=== PATIENT | male | born 1955 | race Hispanic/Latino ===

== ENCOUNTER 2017-03-08 09:09 | Inpatient (IN) | payer MEDICARE, OTHER ==
--- NOTE | 2017-03-08 11:53 | CP.PCM.HP ---
History of Present Illness - History of Present Illness History of Present Illness: Mr Casas is a 61 year old male with pmh sig for chronic back pain, colon lesion status post right hemicolectomy and left hip DJD that has gotten worse and more debilitating over the years despite therapy. Review of left hip xrays and ct scan are consitent with severe djd in the acetabulum. Pt is now admitted for left total hip replacement due to constant pain and debilitation Present on Admission - Present on Admission Any Indicators Present on Admission: No History of DVT/PE: No History of Uncontrolled Diabetes: No Urinary Catheter: No Decubitus Ulcer Present: No Review of Systems - Review of Systems All systems: reviewed and no additional remarkable complaints except (constant left hip pain) - Constitutional Constitutional: As Per HPI - Musculoskeletal Musculoskeletal: Limited Range of Motion, Muscle Weakness, Stiffness - Neurological Neurological: As Per HPI Past Patient History - Infectious Disease Hx of Infectious Diseases: None - Tetanus Immunizations Tetanus Immunization: Unknown - Past Social History Smoking Status: Current Some Days Smoker - CARDIAC Hx Cardiac Disorders: No Hx Angina: No Hx Hypertension: Yes Hx Pacemaker: No - PULMONARY Hx Respiratory Disorders: Yes (Pneumonia) Hx Pneumonia: Yes - NEUROLOGICAL Hx Neurological Disorder: No Hx Dizziness: Yes Hx Seizures: Yes (reports 1 seizure in 2014) Hx Syncope: Yes - RENAL Hx Chronic Kidney Disease: (2011-HD X 1 TX R/T MED TOXICITY) Other/Comment: bph - HEMATOLOGICAL/ONCOLOGICAL Hx Blood Transfusions: No Hx Blood Transfusion Reaction: No - MUSCULOSKELETAL/RHEUMATOLOGICAL Hx Musculoskeletal Disorders: Yes Hx Degenerative Joint Disease: Yes - GASTROINTESTINAL Hx Gastrointestinal Disorders: Yes (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 Seeing Dr. Vasquez in regards to it.) - PSYCHIATRIC Hx Emotional Abuse: No Hx Physical Abuse: No Hx Substance Use: Yes (OPIATE DEPENDENT FOR PAIN MANAGEMENT) - SURGICAL HISTORY Hx Surgeries: Yes - ANESTHESIA Hx Anesthesia Reactions: No Hx Malignant Hyperthermia: No Meds Allergies/Adverse Reactions: Allergies Allergy/AdvReac Type Severity Reaction Status Date / Time varenicline tartrate Allergy Severe ANAPHYLAXIS Verified 02/10/17 08:47 [From Chantix] zolpidem tartrate Allergy Severe HALLUCINATI Verified 02/10/17 09:20 [From Ambien] ONS Physical Exam - Constitutional Appears: Non-toxic, Younger Than Stated Age - Eye Exam Eye Exam: Normal appearance Pupil Exam: NORMAL ACCOMODATION - ENT Exam ENT Exam: Mucous Membranes Moist - Neck Exam Neck exam: Positive for: Normal Inspection - Respiratory Exam Respiratory Exam: Clear to Auscultation Bilateral, NORMAL BREATHING PATTERN - Cardiovascular Exam Cardiovascular Exam: REGULAR RHYTHM, +S1, +S2 - GI/Abdominal Exam GI & Abdominal Exam: Normal Bowel Sounds - Rectal Exam Rectal Exam: Deferred - Neurological Exam Neurological exam: Alert, Oriented x3 - Psychiatric Exam Psychiatric exam: Normal Affect, Normal Mood - Skin Skin Exam: Dry, Intact - Additional Findings Additional findings: complaint of left hip pain with active and passive ROM Results - Vital Signs Recent Vital Signs: Last Vital Signs Temp 97.9 F 03/08/17 09:33 Pulse 69 03/08/17 09:33 Resp 20 03/08/17 09:33 BP 142/80 03/08/17 09:33 Pulse Ox 95 03/08/17 09:33 - Labs Labs: Laboratory Results - last 24 hr 03/08/17 09:30 Blood Type A POSITIVE Antibody Screen Negative BBK History Checked Patient has bt - EKG Data EKG Interpreted by: Myself EKG shows normal: Sinus rhythm - EKG Data When Compared to Previous EKG: No Significant Change - Impressions Impression: echo showed EF 51% with normal LVF Assessment & Plan - Assessment and Plan (Free Text) Assessment: Mr Casas is a 61 yr old male with pmh sig for chronic back pain and djd of left hip with radiographic and clinical exam consistent with severe left hip DJD now admitted for total left hip replacement 1. severe left hip djd- for left hip total replacement will have progressive physical therapy post operatively and pain mgmt plan of r acute vs [facility] post operatively 2 smoker- smoking cessation encouraged 3 colon lesion- s/p right hemicolectomy 4. htn= will monitor and continue antihypertensive meds Pt seen and examined at bedside with Dr Monahan Will follow course Sydney Cabral
[2017-03-08] MEDS ORDERED: Bupivacaine 0.5% Inj(30mL) ONE (12:05)
[2017-03-08] MEDS ORDERED: Propofol 10 mg/ml Inj (20 ML) ONE (12:14)
[2017-03-08] MEDS ORDERED: Midazolam 2 MG/2 ML VIAL ONE (12:15)
[2017-03-08] MEDS ORDERED: Succinylcholine 200 mg/10 ml Inj IV ONE (12:16)
[2017-03-08] MEDS ORDERED: ePHEDrine 50 mg/ml Inj ONE (12:42)
[2017-03-08] MEDS ORDERED: Vancomycin 1 g Inj ONE (14:39)
[2017-03-08] MEDS ORDERED: Neostigmine Methylsulfate 3mg/3ml Syringe IV ONE (14:50)
[2017-03-08] MEDS ORDERED: HYDROmorphone 2 mg/ml ISec IVP PRN (14:55)
[2017-03-08] MEDS ORDERED: Lactated Ringer's 1,000 ML IV SCH (15:43)
[2017-03-08] MEDS ORDERED: HYDROmorphone 1 mg/ml ISec IVP PRN (15:43)
[2017-03-08] MEDS ORDERED: HYDROmorphone 0.2 mg/ml (25ml) 25 ML IV PRN (15:44)
[2017-03-08] MEDS ORDERED: HYDROmorphone 0.5 mg/0.5 ml ISec ONE ×2 (15:47→15:54)
--- NOTE | 2017-03-08 16:02 | OP ---
PROCEDURE DATE: 03/08/2017 PREOPERATIVE DIAGNOSIS: Left hip arthritis. POSTOPERATIVE DIAGNOSIS: Left hip arthritis. PROCEDURE: Left total hip arthroplasty. SURGEON: Ko Monahan MD COMPENSATION SUPERVISOR: ____ MAKSIM and first year podiatry resident. The REFERRAL AND INFORMATION AIDE was scrubbed and present throughout the entire case and assisted with retraction and hip dislocation and reduction, as well as wound archie sure. ANESTHESIA: General. COMPLICATIONS: None. ESTIMATED BLOOD LOSS: 150 mL. IMPLANT: Biomet total hip system. INDICATION FOR PROCEDURE: This is a 61-year-old gentleman with longstanding left hip pain. Clinical examination was consistent with some pain with passive and active range of motion of the hip, some l oss of passive internal and external rotation. Radiographic examination was consistent with left hip arthritis. After a period of failed nonsurgical management, recommendations were for a left total h ip arthroplasty. The risks, benefits, and alternatives of procedure were discussed with the patient and informed consent was obtained. OPERATIVE PROCEDURE: After surgical site was found and verified in preoperative holding area, the pa tient was taken to the operating room and placed supine on the operating room table. After administr ation of general anesthesia, the patient received 2 grams of Ancef IV. A Ford catheter was inserted . Venodyne boot was placed on the nonoperative extremity. The patient was positioned in lateral dec ubitus position with the left hip up towards the ceiling. Care was taken to make sure all bony promi nences and nerves were well padded and protected and the left lower extremity was prepped and draped in usual sterile fashion. Bony landmarks were identified about the left hip. An approximately 10 cm curvilinear incision was made over the left proximal femur. Soft tissues were dissected sharply shyanne n to the fascia and the fascia was incised and a Charnley retractor was placed. Short external rotat ors were tagged, resected off the proximal tibia. T-type capsulotomy was performed and the hip was d islocated. Based on our preoperative templates, our femoral neck resection was performed and the fem oral head was removed. In removing the femoral head, a small crack was noted right at the lateral as pect of our neck resection and a decision was made to address this later with a cerclage wire. At th is point, our attention was directed to the acetabulum and anterior capsulotomy was performed. Once the acetabulum was adequately exposed, the acetabulum was reamed sequentially to allow for a 54 mm pr ess-fit cup. Care was taken to make sure to maintain proper height and version. A trial cup was ins erted and then satisfied with the position, the trial was removed and the hip joint was pulse lavaged bony surfaces were dried and the actual cup was then impacted into place again making sure to mainta in proper height and version. The cup was then fixed with 2 additional screws in the posterior-super ior quadrant. The actual lining was then inserted and our attention was directed to the femur. The medullary canal of the proximal femur was reamed and broached sequentially to allow for a 15 mm press -fit collared stem. With the trial stem in place, the trial neck and head was inserted and the hip w as reduced and taken through a range of motion with approximately equal limb lengths and stable. The hip was dislocated and the trial components were removed. The hip joint was pulse lavaged and the a ctual stem was then impacted into place again making sure to maintain proper aversion. Prior to plac ing the head, a cerclage wire was passed around the calcar to ensure that there was no propagation of the fracture. At this point, the actual head was impacted into place and the hip was reduced. Hip was again taken a range of motion and was noted to be stable with approximately equal limb lengths. Capsule was closed to bone using #1 Vicryl suture. Short external rotators were repaired to bone usi ng #1 Vicryl suture. The deep fascia was closed using #1 Vicryl suture. The subcutaneous tissue was closed using 0 Vicryl and 2-0 Vicryl suture and the skin was closed using wale. A sterile dressi ng was applied and abduction pillow was placed. The patient was transferred supine, awakened and tom en to recovery room in stable condition. Ko Monahan MD cc: [id number] TT: 03/08/2017 16:01:44
[2017-03-08] MEDS ORDERED: HYDROmorphone 1 mg/ml ISec IVP ONE ×3 (16:10→17:00)
[2017-03-08] MEDS ORDERED: HYDROmorphone 1 mg/ml ISec ONE ×3 (16:13→17:06)
[2017-03-08 18:16] VITALS: BMI 28.0
[2017-03-08] MEDS: ceFAZolin 1 gm in NS 1 GM/100 ML BAG IVPB SCH (19:54)
[2017-03-09] MEDS: ceFAZolin 1 gm in NS 1 GM/100 ML BAG IVPB SCH (03:52)
[2017-03-09 07:06] LABS: ALKALINE PHOSPHATASE 120 U/L (38-133); ALT/SGPT 27 U/L (7-56); AST/SGOT 34 U/L (15-59); BILIRUBIN,TOTAL 0.8 mg/dL (0.2-1.3); BLOOD UREA NITROGEN 9 mg/dL (7-21); CALCIUM 8.7 mg/dL (8.4-10.5); CARBON DIOXIDE 27 mmol/L (21-33); CHLORIDE 99 mmol/L (98-107); GFR AFRICAN-AMERICAN > 60; GLUCOSE,RANDOM 119 mg/dL (70-110); POTASSIUM 3.5 mmol/L (3.6-5.0); SODIUM 135 mmol/L (132-148)
[2017-03-09 07:12] LABS: HEMATOCRIT 39.3 % (42.0-52.0); MEAN CORPUSCULAR HEMOGLOBIN 29.8 pg (25.0-35.0); MEAN CORPUSCULAR HGB CONC 34.6 g/dl (31.0-37.0); MEAN PLATELET VOLUME 10.3 fl (7.0-11.0); RED CELL DISTRIBUTION WIDTH 14.4 % (11.5-14.5); WHITE BLOOD COUNT 13.3 10^3/ul (4.5-11.0)
[2017-03-09] MEDS ORDERED: Potassium Chloride 20 mEq ER Tab PO SCH (08:00)
--- NOTE | 2017-03-09 08:49 | RAD ---
PROCEDURE: HISTORY: left total hip replacement COMPARISON: None TECHNIQUE: AP view of the pelvis and applicable frog leg views obtained. FINDINGS: A left hip prosthesis is present. The acetabular component appears seated satisfactorily with 2 oblique screws projecting into the acetabulum/iliac bone. The femoral stem appears well centered to the medullary cavity. Cerclage wire at the intertrochanteric level noted Soft tissue left thigh minimal emphysema - consistent postop changes Battery device -neurostimulator device -cephalad lead incompletely visualized. Extensive posterior-lateral hardware lumbar fusion with interbody metallic bone plugs suggested. Inferior lumbosacral laminectomy. Projecting over the right superior acetabulum -right iliac bone. Right hip osteoarthrosis with possible right femoral acetabular impingement morphology also noted IMPRESSION: Recent left hip replacement. Normal postop changes in satisfactory positioning suggested Extensive lumbar postop changes
--- NOTE | 2017-03-09 09:59 | CON ---
DATE: 03/09/2017 REFERRING PHYSICIAN: Dr. Monahan. REASON FOR CONSULTATION: Medical management of the patient's pain, left leg, secondary to arthritis. CHIEF COMPLAINT AND HISTORY OF PRESENT ILLNESS: This is a 61-year-old male who is a patient of mine from the office coming in for an elective left hip replacement that was done by Dr. Monahan. I have been asked to follow the patient medically for the chronic pain issues that the patient has. The pa dayton has been having difficulty ambulating and has been having significant pain issues requiring peri cotics. The patient had a left leg total hip arthroplasty done. He says his pain is not well contro lled with the Dilaudid. He is asking to increase his pain medications. He has no complaints of any nausea. No vomiting, no fever or chills, no abdominal pain or back pain, no dysuria or frequency. T he pain he does have in his back is not any worse from the chronic pain that he has. All other revie w of symptoms is within normal limits except as mentioned. Pain is 9/10, nonradiating, mostly on the left side, worse with movement. HOME MEDICATIONS: Xanax, Topamax, Norvasc. PAST MEDICAL HISTORY: 1. Chronic back pain. 2. Elevated PSA with biopsy negative for prostate cancer. 3. Thoracic spine compression. 4. Anxiety. 5. Depression. 6. Hypertension. 7. History of seizures. SOCIAL HISTORY: The patient does continue to smoke. Denies drug use. FAMILY HISTORY: Noncontributory. ALLERGIES: CHANTIX, AMBIEN. PHYSICAL EXAMINATION: VITAL SIGNS: Temperature is 99.6, pulse of 90, blood pressure 144/84, respirations 20, O2 saturation is 93%, height is 5 feet 9 inches, weight is 190 pounds, BMI is 28. GENERAL: Patient lying in bed, flat, and in no apparent distress. HEAD AND NECK EXAM: Atraumatic, normocephalic. Conjunctivae are pink. Throat clear and mouth with moist mucosa. Oropharynx benign. EYES: Extraocular movements are intact. PERRLA. NECK: Supple. No JVD, thyromegaly, or adenopathy. No bruits. HEART: S1 and S2 regular rate and rhythm. No murmurs, rubs, or gallops. LUNGS: Clear to auscultation bilaterally. No wheezing rales or rhonchi appreciated. No retraction s on exam. ABDOMEN: Soft, nontender, nondistended. Bowel sounds are positive in all quadrants. No rebound. No hepatosplenomegaly. EXTREMITIES: In the left leg, there is decreased range of motion because of the patient's pain. N o cyanosis, clubbing, or edema. NEURO: No facial asymmetry, tongue is midline, no uvula deviation. Power is 5/5 in upper extremity and 5/5 in lower extremity. Sensation is normal in upper extremity and lower extremity. PSYCH: Awake, alert, oriented x3. No anxiety or depression symptoms. Good insight. Normal affec t. : No CVA tenderness VASCULAR: 2+ pulses in carotid and pedal pulses. SKIN: No erythema or abnormal nodules noted. SPINE: Normal curvature. LYMPHADENOPATHY: No anterior cervical or posterior cervical adenopathy. No inguinal adenopathy. ASSESSMENT: 1. Left hip degenerative joint disease, status post left hip total replacement. 2. Smoking. 3. Anxiety. 4. Chronic back pain. 5. Benign prostatic hypertrophy. 6. Hypertension. PLAN: The patient is currently comfortable, but requires increasing of his pain medications. I jerardo l place the patient on Dilaudid 4 mg. The patient is on Colace for constipation. He is on Norvasc f or hypertension. He is on fluoxetine for his depression and anxiety. The patient is on Xanax for an xiety. He is on a regular diet. He is tolerating. He will most likely need to go to a subacute brittny ab facility. His works in a subacute rehab facility and the patient may be able to go there. Ramses Dillon MD cc: [id number] TT: 03/09/2017 09:59:14 Confirmation # [id number] Dictation # [id number] tn
[2017-03-09] MEDS: Enoxaparin 30 mg Syringe SC SCH ×2 (10:20→21:36)
--- NOTE | 2017-03-09 10:39 | CP.PCM.PN ---
Subjective - Date & Time of Evaluation Date of Evaluation: 03/09/17 Time of Evaluation: 10:38 - Subjective Subjective: Pt awake, alert. Adequate pain control. T max 99 LLE: abduction pillow in place dressing clean and intact NVI distally Ford out WBC 13 Hg 13 POD#1 PT, Lovenox D/c planning Objective - Vital Signs/Intake and Output Vital Signs (last 24 hours): Temp Pulse Resp BP Pulse Ox 99.6 F 90 20 144/84 93 L 03/09/17 09:04 03/09/17 09:04 03/09/17 09:04 03/09/17 10:20 03/09/17 09:04 Intake and Output: 03/09/17 03/09/17 06:59 18:59 Intake Total 420 Output Total 2450 Balance -2030 - Medications Medications: Current Medications Alprazolam (Xanax) 1 mg PO BID PRN; Protocol PRN Reason: Anxiety Amlodipine Besylate (Norvasc) 10 mg PO DAILY [facility] Last Admin: 03/09/17 10:20 Dose: 10 mg Docusate Sodium (Colace) 100 mg PO BID [facility] Last Admin: 03/09/17 10:21 Dose: 100 mg Enoxaparin Sodium (Lovenox) 30 mg SC Q12H [facility] PRN Reason: Protocol Last Admin: 03/09/17 10:20 Dose: 30 mg Fluoxetine HCl (Prozac) 20 mg PO TID [facility] Last Admin: 03/09/17 10:21 Dose: 20 mg Hydromorphone HCl (Dilaudid) 4 mg IVP Q3H PRN PRN Reason: Pain, severe (8-10) Last Admin: 03/09/17 08:53 Dose: 4 mg Ondansetron HCl (Zofran Inj) 4 mg IVP Q8H PRN PRN Reason: Nausea/Vomiting Potassium Chloride (K-Dur 20 Meq Er Tab) 40 meq PO BRK [facility] Last Admin: 03/09/17 08:34 Dose: 40 meq - Labs Labs: 03/09/17 06:30 03/09/17 06:30
[2017-03-10 08:06] LABS: HEMATOCRIT 38.2 % (42.0-52.0); MEAN CELL VOLUME 86.8 fL (80.0-105.0); MEAN CORPUSCULAR HEMOGLOBIN 29.5 pg (25.0-35.0); MEAN PLATELET VOLUME 10.4 fl (7.0-11.0); RED CELL DISTRIBUTION WIDTH 14.5 % (11.5-14.5); WHITE BLOOD COUNT 13.7 10^3/ul (4.5-11.0)
[2017-03-10 08:20] LABS: ALB/GLOB RATIO 0.9 (1.1-1.8); ALKALINE PHOSPHATASE 118 U/L (38-133); ALT/SGPT 33 U/L (7-56); AST/SGOT 31 U/L (15-59); BILIRUBIN,TOTAL 1.2 mg/dL (0.2-1.3); BLOOD UREA NITROGEN 15 mg/dL (7-21); CALCIUM 8.9 mg/dL (8.4-10.5); CARBON DIOXIDE 29 mmol/L (21-33); CHLORIDE 98 mmol/L (98-107); GFR AFRICAN-AMERICAN > 60; GLUCOSE,RANDOM 104 mg/dL (70-110); POTASSIUM 4.1 mmol/L (3.6-5.0); SODIUM 135 mmol/L (132-148); TOTAL PROTEIN 6.8 g/dL (5.8-8.3)
--- NOTE | 2017-03-10 09:32 | PN ---
DATE: 03/10/2017 SUBJECTIVE: The patient says he is feeling comfortable. His pain is about 3-4/ 10 if he does not move. He says the pain medication is helping him. He was able to sleep last night. PHYSICAL EXAMINATION: VITAL SIGNS: Temperature is 98.8, pulse of 84, blood pressure 131/73, respirations 20, O2 saturation 94%. GENERAL: The patient comfortable, in no acute distress. HEENT: Anicteric sclerae. Moist mucosa. NECK: No JVD or adenopathy. CARDIAC: S1/S2. No murmurs. No rubs. Regular. RESPIRATORY: Clear to auscultation bilaterally. No wheezes, rales, or rhonchi. Good air entry. ABDOMEN: Bowel sounds are positive, soft, nontender, and nondistended. EXTREMITIES: No edema. Has 1+ pulses. 1. Status post left hip replacement, postop day #1. 2. Smoking. 3. Anxiety. 4. Chronic back pain. 5. Benign prostatic hypertrophy. 6. Hypertension. PLAN: The patient is currently comfortable. He is on Lovenox. The patient has pain medications under control. He is receiving methadone. I started him on his methadone, which he was taking as an outpatient for his pain. He is on Norvasc for hypertension. He is on Prozac. He is going to be on Xanax as needed. The patient's potassium is normal today. I will decrease his Dilaudid to 2 mg, so we can have this for breakthrough pain. He is going to [facility] ready for his subacute rehabilitation. I did write prescriptions so he will have when he gets to the rehab facility. Ramses Dillon MD cc: [id number] TT: 03/10/2017 09:32:02 Confirmation # [id number] Dictation # [id number] tn MTDD
[2017-03-10] MEDS: Enoxaparin 30 mg Syringe SC SCH ×2 (10:16→21:44)
[2017-03-10] MEDS: HYDROmorphone 2 mg/ml ISec IVP PRN ×4 (11:16→23:04)
[2017-03-10 12:33] LABS: URINE BILIRUBIN SMALL (NEGATIVE); URINE BLOOD TRACE-INTACT (NEGATIVE); URINE GLUCOSE (UA) NEGATIVE (NEGATIVE); URINE KETONE 15 mg/dL (NEGATIVE); URINE LEUKOCYTE ESTERASE TRACE Leu/uL (NEGATIVE); URINE PROTEIN 30 mg/dL (<30 mg/dL)
[2017-03-10 12:34] LABS: URINE APPEARANCE CLEAR (CLEAR); URINE COLOR YELLOW (YELLOW)
[2017-03-11] MEDS: HYDROmorphone 2 mg/ml ISec IVP PRN ×4 (02:43→16:14)
[2017-03-11 07:48] VITALS: PULSE 79; RESP 18; TEMP 98.4; O2SAT 94
--- NOTE | 2017-03-11 07:58 | DS ---
SUBJECTIVE: The patient is currently comfortable. He says his pain is controlled. He was started o n his methadone yesterday. The patient initially had come in and had a left hip replacement. The av burris has done fairly well. He is going to be discharged home today to subacute rehabilitation. PHYSICAL EXAMINATION: VITAL SIGNS: Temperature is 99.8, pulse of 88, blood pressure is 118/80, respirations 20. GENERAL: The patient comfortable, in no acute distress. HEENT: Anicteric sclerae. Moist mucosa. NECK: No JVD or adenopathy. CARDIAC: S1/S2. No murmurs. No rubs. Regular. RESPIRATORY: Clear to auscultation bilaterally. No wheezes, rales, or rhonchi. Good air entry. ABDOMEN: Bowel sounds are positive, soft, nontender, and nondistended. EXTREMITIES: No edema. Has 1+ pulses. LABORATORIES: White count 13.7, hemoglobin 13.0. These are from yesterday. ASSESSMENT: 1. Status post hip replacement, postop day #3. 2. Smoking. 3. Anxiety. 4. Chronic back pain. 5. Benign prostatic hypertrophy. 6. Hypertension. PLAN: The patient is currently comfortable, is on Colace for constipation, is on Lovenox for deep ve nous thrombosis prophylaxis. The patient is receiving Dilaudid for pain IV for breakthrough. He is on methadone for maintenance pain. He is on nicotine patch for his smoking. He is on Norvasc for hy pertension. He is on Prozac and Xanax for his anxiety. He is on a regular diet. He is cleared by [facility] to go to the subacute rehab facility. I did write for him the prescription he uses for pain medica tions with methadone and Dilaudid to be taken at the rehab facility. CONDITION: Stable. ACTIVITY: Increase as tolerated. FOLLOWUP: 1. Follow up with Dr. Delgado and Dr. Dillon in 1-2 weeks after discharge from subacute rehabilitati on. 2. Follow up with Dr. Monahan. Ramses Dillon MD cc: [id number] TT: 03/11/2017 07:58:04 en
[2017-03-11] MEDS ORDERED: HYDROmorphone 2 mg/ml ISec IVP STA (08:53)
[2017-03-11] MEDS: Enoxaparin 30 mg Syringe SC SCH (10:12)
[2017-03-11 10:20] VITALS: BP 109/58
--- NOTE | 2017-03-11 10:51 | CP.PCM.PN ---
Subjective - Date & Time of Evaluation Date of Evaluation: 03/11/17 Time of Evaluation: 10:49 - Subjective Subjective: Pt feeling better. Adequate pain control. Afebrile L hip: incision clean and intact no cellulitis thigh soft NT NVI distally Plan for rehab today continue Lovenox Abduction pillow while in bed D/c wale POD 14 Objective - Vital Signs/Intake and Output Vital Signs (last 24 hours): Temp Pulse Resp BP Pulse Ox 98.4 F 79 18 109/58 L 94 L 03/11/17 07:30 03/11/17 07:30 03/11/17 07:30 03/11/17 09:54 03/11/17 07:30 Intake and Output: 03/11/17 03/11/17 06:59 18:59 Intake Total 960 Output Total 300 Balance 660 - Medications Medications: Current Medications Alprazolam (Xanax) 1 mg PO BID PRN; Protocol PRN Reason: Anxiety Amlodipine Besylate (Norvasc) 10 mg PO DAILY [facility] Last Admin: 03/11/17 09:54 Dose: Not Given Docusate Sodium (Colace) 100 mg PO BID [facility] Last Admin: 03/11/17 10:00 Dose: 100 mg Enoxaparin Sodium (Lovenox) 30 mg SC Q12H [facility] PRN Reason: Protocol Last Admin: 03/11/17 10:12 Dose: 30 mg Fluoxetine HCl (Prozac) 20 mg PO TID [facility] Last Admin: 03/11/17 10:13 Dose: 20 mg Hydromorphone HCl (Dilaudid) 2 mg IVP Q3H PRN PRN Reason: Pain, severe (8-10) Last Admin: 03/11/17 05:54 Dose: 2 mg Methadone HCl (Methadone) 30 mg PO Q8 [facility] Last Admin: 03/10/17 21:43 Dose: 30 mg Nicotine (Nicoderm Cq) 1 patch TD DAILY [facility] Last Admin: 03/11/17 10:13 Dose: 1 patch Ondansetron HCl (Zofran Inj) 4 mg IVP Q8H PRN PRN Reason: Nausea/Vomiting - Labs Labs: 03/10/17 07:30 03/10/17 07:30
--- NOTE | 2017-03-14 16:42 | PQF GENQUE ---
03/14/17 Dr. Monahan, You did a total left hip arthroplasty on this patient. Please specify whether the replacement is a synthetic substitute, a ceramic,ceramic on polyethylene, metal, or metal on polyethylene. Thank you. Clarification of your documentation is requested to better reflect the severity of illness and intensity of treatment of your patient. Indicators present [] Specify: [] [] Specify: [] [] Specify: [] [] Specify: [] Location in the medical record that reflects the above clinical findings: [] Treatment Provided: [] PHYSICIAN'S RESPONSE Based on your medical judgment of the clinical indicators outlined above please clarify the following: [] Practitioner response [] If unable to determine, please check the box, sign and date. Present On Admission (POA) Indicator: [] Present at the time of admission [] Not present at the time of admission [] Clinically Undetermined In responding to this query, please exercise your independent professional judgment. The fact that a question is asked does not imply that any particular answer is desired or expected. Thank you for your clarification on this documentation. If you have any questions please call:[ ] * Thank you, [ ] clinical research coordinator JULIAN
== END 2017-03-11 17:08 | DRG 470 ==
LOC: SDAINP 09:09 → EDSTATUS 11:00 → 5RNO 17:18
PROVIDERS: ADMIT Orthopaedic Surgery; ATTEND Orthopaedic Surgery
PROC: 0SRB02Z Replacement of Left Hip Joint with Metal on Polyethylene Synthetic Substitute, Open Approach (ICD-10-PCS; principal; 2017-03-08 11:00)
DX: M16.12 Unilateral primary osteoarthritis, left hip (principal); M48.54XA Collapsed vertebra, not elsewhere classified, thoracic region, initial encounter for fracture; I12.9 Hypertensive chronic kidney disease with stage 1 through stage 4 chronic kidney disease, or unspecified chronic kidney disease; N18.9 Chronic kidney disease, unspecified; N40.0 Benign prostatic hyperplasia without lower urinary tract symptoms; F17.200 Nicotine dependence, unspecified, uncomplicated; F41.9 Anxiety disorder, unspecified; G89.29 Other chronic pain; M54.9 Dorsalgia, unspecified; Z79.891 Long term (current) use of opiate analgesic; Z87.01 Personal history of pneumonia (recurrent); Z90.49 Acquired absence of other specified parts of digestive tract; R97.20 Elevated prostate specific antigen [PSA]; F32.89 Other specified depressive episodes; Z86.69 Personal history of other diseases of the nervous system and sense organs; K59.00 Constipation, unspecified